=== PATIENT | male | born 1965 | race Two or more races ===

== ENCOUNTER → 2024-01-17 | Emergency (ER) | payer OTHER ==
[~2024-01-17] VITALS: Ht 172.7 cm; Wt 81.6 kg
[~2024-01-17] MED LIST: CEPH500C2 PO; CEPHALEXIN MONOHYDRATE 500 MG CAPSULE PO ONE; IBUPROFEN 600 MG TABLET ONE; LIDOCAINE 1%-EPI 1:100,000 20 ML VIAL ONE; SILVER SULFADIAZINE CREAM 25 GM TUBE ONE; SULF1TAB48 PO; SULFAMETH/TRIMETH 800/160 MG 1 UDTAB TABLET ONE
[2024-01-17 15:46] VITALS: BP 137/71; TEMP 98.9; O2SAT 100
[2024-01-17] MEDS: LIDOCAINE 1%-EPI 1:100,000 50 ML VIAL IJ ONE (18:04)
[2024-01-17] MEDS: SULFAMETH/TRIMETH 800/160 MG 1 UDTAB TABLET PO ONE (18:52)
[2024-01-17] MEDS: CEPHALEXIN MONOHYDRATE 500 MG CAPSULE PO ONE (18:53)
[2024-01-17] MEDS: IBUPROFEN 600 MG TABLET PO ONE (18:53)
[2024-01-17] MEDS: SILVER SULFADIAZINE CREAM 25 GM TUBE TP ONE (18:53)
== END | disposition home or self-care (01) ==
LOC: ER 15:44
DX: L03.116 Cellulitis of left lower limb (principal); L02.416 Cutaneous abscess of left lower limb; M25.572 Pain in left ankle and joints of left foot
CPT/HCPCS: 99284; 10060; 73610; 73590; J3490 ×2

== ENCOUNTER 2024-02-29 10:47 | Emergency (ER) | payer OTHER ==
[~2024-02-29] VITALS: Ht 170.2 cm; Wt 74.4 kg
[~2024-02-29 10:47] MED LIST changes: -CEPHALEXIN MONOHYDRATE 500 MG CAPSULE PO ONE; -IBUPROFEN 600 MG TABLET ONE; -LIDOCAINE 1%-EPI 1:100,000 20 ML VIAL ONE; -SILVER SULFADIAZINE CREAM 25 GM TUBE ONE; -SULFAMETH/TRIMETH 800/160 MG 1 UDTAB TABLET ONE
[2024-02-29 11:28] LABS: BASOPHILS # (AUTO) 0.1 K/uL (0.0-0.2); BASOPHILS % (AUTO) 0.9 % (0.0-2.0); EOSINOPHILS # (AUTO) 0.5 K/uL (0.0-0.7); EOSINOPHILS % (AUTO) 4.2 % (0.0-6.0); HEMATOCRIT 40 % (39-51); HEMOGLOBIN 13.3 g/dL (13.5-17.5); LYMPHOCYTES # (AUTO) 3.5 K/uL (0.8-4.8); LYMPHOCYTES % (AUTO) 31.5 % (20.0-44.0); MEAN CORPUSCULAR HEMOGLOBIN 28 PG (26.0-33.0); MEAN CORPUSCULAR HGB CONC 34 g/dl (31.0-36.0); MEAN CORPUSCULAR VOLUME 85 fL (80-96); MONOCYTES # (AUTO) 0.7 K/uL (0.1-1.30); MONOCYTES % (AUTO) 6.5 % (2.0-12.0); NEUTROPHILS # (AUTO) 6.3 K/uL (1.8-8.9); NEUTROPHILS % (AUTO) 56.9 % (43.0-81.0); PLATELET COUNT (AUTO) 412 K/uL (150-450); RED BLOOD CELL COUNT(AUTO) 4.68 MIL/uL (4.5-6.0); RED CELL DISTRIBUTION WIDTH 14.5 % (11.5-15.0); WHITE BLOOD COUNT (AUTO) 11.1 K/uL (4.3-11.0)
[2024-02-29] MEDS ORDERED: LORAZEPAM INJ 2 MG/ML VIAL ONE (11:29)
[2024-02-29] MEDS ORDERED: OLANZAPINE 10 MG VIAL IM ONE (11:29)
[2024-02-29] MEDS: OLANZAPINE 10 MG VIAL IM ONE (11:30)
[2024-02-29] MEDS: IV NS 0.9% 1,000 ML BAG IV ONE (11:30)
[2024-02-29] MEDS: LORAZEPAM INJ 2 MG/ML VIAL IV ONE (11:30)
[2024-02-29 11:38] LABS: CALCIUM, SERUM 9.9 mg/dL (8.5-10.1); CREATININE 1.2 mg/dL (0.6-1.3); POTASSIUM 3.5 mmol/L (3.5-5.1)
[2024-02-29 11:44] LABS: ALBUMIN 3.9 g/dL (3.4-5.0); BILIRUBIN,DIRECT 0.1 mg/dL (0.0-0.2); BILIRUBIN,TOTAL 0.5 mg/dL (0.2-1.0); TOTAL PROTEIN, SERUM 8.3 g/dL (6.4-8.2)
[2024-02-29 12:17] VITALS: TEMP 98.8
[2024-02-29 14:43] VITALS: BP 132/66; O2SAT 100
== END 2024-02-29 14:44 | disposition home or self-care (01) ==
LOC: ER 10:53
DX: R11.2 Nausea with vomiting, unspecified (principal); R42 Dizziness and giddiness; M79.10 Myalgia, unspecified site; F15.10 Other stimulant abuse, uncomplicated
CPT/HCPCS: 99284; 96374; 96361; 93005; 85025; 80048; 80076; 36415; 96372; J2060; J7030; J3490

== ENCOUNTER 2024-08-20 00:08 | Emergency (ER) | payer OTHER | END 2024-08-20 01:51 | disposition left against medical advice (07) | LOC: ER 00:13 | DX: Z04.1 Encounter for examination and observation following transport accident (principal); Z53.21 Procedure and treatment not carried out due to patient leaving prior to being seen by health care provider ==